=== PATIENT | male | born 1935 | race Caucasian/White ===

== ENCOUNTER → 2016-12-26 | Outpatient (CLI) | payer OTHER ==
[~2016-12-26] MED LIST: CORDARONE200 MG PO; COUMADIN5 MG PO; LASIX40 MG PO; LO-DOSE ASPIRIN81 M1 PO; LOPRESSOR50 MG PO; MACULAR VITAMI1 EACH PO; POTASSIUM CHLO10 ME3 PO; PRILOSEC20 MG PO; PRINIVIL20 MG PO
== END | disposition home or self-care (01) ==
LOC: AMB 07:41
DX: L72.3 Sebaceous cyst (principal)
CPT/HCPCS: 88304